=== PATIENT | male | born 1945 | race Caucasian/White ===

== ENCOUNTER 2018-09-07 16:10 | Emergency (ER) | payer OTHER, BC ==
[~2018-09-07] VITALS: Ht 177.8 cm; Wt 79.4 kg
[2018-09-07 18:11] LABS: ABSOLUTE NEUTROPHILS 3.2 thou/uL (1.4-8.2); EOSINOPHILS 2.4 % (0.0-3.0); HEMATOCRIT 42.5 % (42.0-52.0); HEMOGLOBIN 14.6 gm/dL (14.0-18.0); MCH 29.9 pg (26.0-34.0); MCHC 34.3 g/dL (28.0-37.0); MCV 87.4 fL (80.0-100.0); MONOCYTES 7.8 % (1.0-8.0); PLATELET COUNT 171 thou/uL (150-400); POLYS 62.8 % (36.0-66.0); RBC 4.86 mil/uL (4.50-6.00); RDW 15.4 % (10.5-14.5)
[2018-09-07 18:27] LABS: URINE BILIRUBIN NEGATIVE (Negative); URINE BLOOD NEGATIVE (Negative); URINE CLARITY CLEAR; URINE COLOR YELLOW; URINE GLUCOSE-RANDOM* NEGATIVE (Negative); URINE KETONES NEGATIVE (Negative); URINE LEUKOCYTES-REFLEX NEGATIVE (Negative); URINE NITRITE-REFLEX NEGATIVE (Negative); URINE PROTEIN (DIPSTICK) NEGATIVE (Negative); URINE UROBILINOGEN 0.2 E.U./dl (0.2-1.0)
[2018-09-07] MEDS ORDERED: ANTIVERT25 MG PO (18:33)
[2018-09-07 18:37] VITALS: BP 175/80
[2018-09-07 18:38] LABS: ANION GAP 9 mmol/L (7-16); BUN 12 mg/dL (7-18); CALCIUM 9.1 mg/dL (8.5-10.1); CHLORIDE 104 mmol/L (98-107); CO2 26 mmol/L (21-32); CREATININE 0.9 mg/dL (0.7-1.3); GLUCOSE 85 mg/dL (74-106); SODIUM 139 mmol/L (136-145)
[2018-09-07 18:44] LABS: ALBUMIN 3.8 g/dL (3.4-5.0); MAGNESIUM 2.3 mg/dL (1.8-2.4); SGOT 29 U/L (15-37); SGPT 36 U/L (30-65); TOTAL BILIRUBIN 0.5 mg/dL (<0.1-1.0); TOTAL PROTEIN 6.6 g/dL (6.4-8.2); TROPONIN-I <0.06 ng/mL (<0.06)
[2018-09-07] MEDS ORDERED: CLONIDINE0.1 PO (18:51)
--- NOTE | 2018-09-08 08:14 | EKG ---
[place] [address] [facility] [place] [address] ELECTROCARDIOGRAM REPORT Name: ISAÍAS SPANGLER Room #: DEP AYO Escobar#: [id number] Admission: 09/07/18 Attend Phys: Discharge: 09/07/18 Date of : 47 Report #: [id number] THIS REPORT FOR: //name// [facility] ED Test Date: 2018-09-07 Test Time: 17:36:36 Pat Name: ISAÍAS SPANGLER Department: Room: Gender: Production Shift Supervisor: as : 1945 Requested By: Irvin Cobos Order Number: [id number] MD: Flip Hallman Measurements Intervals [place] Rate: 61 P: 20 MT: 169 QRS: -30 QRSD: 95 T: 10 QT: 417 QTc: 420 Interpretive Statements Sinus rhythm Left axis deviation No previous ECG available for comparison Electronically Signed On 09-08-2018 8:14:45 [employer] by Flip Hallman [email or web address] <ELECTRONICALLY SIGNED> By: Flip Hallman MD 09/08/18 0814 1736 1736 Flip Hallman MD /[email or web address]
== END 2018-09-07 18:50 | disposition home or self-care (01) ==
LOC: ER 16:10
PROVIDERS: Emergency Medicine
DX: H81.13 Benign paroxysmal vertigo, bilateral (principal); R06.02 Shortness of breath